=== PATIENT | male | born 1965 | race Caucasian/White ===

== ENCOUNTER 2025-01-29 11:39 | Emergency (ER) | payer MEDICAID, SELFPAY ==
[2025-01-29 11:42] VITALS: BMI 23.0
[2025-01-29 11:44] VITALS: BP 148/87; PULSE 70; RESP 17; TEMP 36.6; O2SAT 98
--- NOTE | 2025-01-29 11:58 | EKG_ITS ---
[facility] Test Date: 2025-01-29 Pat Name: MICAH GUEVARA Department: Room: - Gender: Male Environment Coordinator: : 1965 Requested By: Bret Castro Order Number: [id number] Reading MD: Bret Castro Measurements Intervals [place] Rate: 63 P: 61 AK: 166 QRS: 86 QRSD: 161 T: 61 QT: 458 QTc: 472 Interpretive Statements SINUS RHYTHM RIGHT BUNDLE BRANCH BLOCK [120+ ms QRS DURATION, UPRIGHT V1, 40+ ms S IN I/aVL/V4/V5/V6] No previous ECG available for comparison /store/S0/[id number]
--- NOTE | 2025-01-29 11:58 | PD.EDMEDCL ---
ED Medical Clearance RME/HPI General Chief complaint: Medical Clearance Stated complaint: MEDICAL CLEARANCE Time Seen by Provider: 01/29/25 11:51 Arrival date/time: 01/29/25 11:39 59-year-old male patient with no past medical history, came in for evaluation regarding medical clearance. Patient apparently was incarcerated today while in the senior living been complaining of shoulder pain radiating to the chest. According to him he has been having the pain for several months now. Comes and goes. Currently pain is described as dull ache severity mild. Patient have obvious lipoma to the left shoulder. Patient denies any cough no shortness of breath no diaphoresis. Denies any trauma denies any other complaints. Related Information Previous Rx's ?Medication ?Instructions ?Recorded Acetaminophen With Codeine 2 tab PO QIDPRN ##18 09/17/12 (Tylenol W-Codeine #3 Tablet) Allergies Allergy/AdvReac Type Severity Reaction Status Date / Time NKA* Allergy Uncoded 05/05/11 10:27 Review of Systems Review of Systems Narrative Review of Systems: Review of system reviewed and within normal limits except mentioned in HPI ED Exam Narrative Physical exam: VITAL SIGNS: Reviewed. GENERAL APPEARANCE: Alert and interactive, follows commands, no acute distress, HEAD AND FACE: Non-traumatic. ENT: PERRL, pink conjunctivitis, eyelid no trauma, Mucous membrane moist. NECK: Supple, nontender, no nuchal rigidity. CHEST: No tenderness, no crepitus, no paradoxical movement, no retractions. LUNGS: Clear, well ventilated, symmetric, no rales, no wheezing, no ronchi, no stridor, good breath sounds bilaterally. HEART: Regular rate, regular rhythm, no murmur, no gallops. ABDOMEN: Soft, positive bowel sounds, nondistended, no guarding, nontender, no rebound, no masses, RECTAL: Deferred. GENITAL: Deferred. NEUROLOGICAL: Gross motor function intact sensory function intact, Appropriate for age. MUSCULOSKELETAL: low back nontender, full range of motion. EXTREMITIES: Left shoulder tenderness, full range of motion. Lipoma noted on the left deltoid area, nontender no redness with soft to touch, distal neurovascular status intact SKIN: Color pink, dry, no rash, no lacerations, no abrasions, no contusions. LYMPHATICS: Deferred. Course Quality Measures none Orders Category Date Time Status EKG (ED ONLY) *Do not use* NOW Care 01/29/25 11:58 Active EKG (ED Only) Stat Exams 01/29/25 11:58 Draft Acetaminophen Tab [Tylenol ES Tab] Med 01/29/25 11:58 Discontinued 1,000 mg PO X1 ONE Vital Signs Vital signs: Vital Signs Temperature 98 F 01/29/25 11:44 Pulse Rate 70 01/29/25 11:44 Respiratory Rate 17 01/29/25 11:44 Blood Pressure 148/87 H 01/29/25 11:44 Pulse Oximetry (%) 98 01/29/25 11:44 Oxygen Delivery Method Room Air 01/29/25 11:44 Medical Clearance MDM Narrative MDM Narrative:: 59-year-old male patient with no past medical history, came in for evaluation regarding medical clearance. Patient apparently was incarcerated today while in the senior living been complaining of shoulder pain radiating to the chest. According to him he has been having the pain for several months now. Comes and goes. Currently pain is described as dull ache severity mild. Patient have obvious lipoma to the left shoulder. Patient denies any cough no shortness of breath no diaphoresis. Denies any trauma denies any other complaints. EKG showed normal sinus rhythm, ventricular rate of 63 bpm, no ST segment elevation depression noted. No-STEMI. Patient is medically cleared for incarceration. Patient was advised to follow-up with a surgeon regarding lipoma to left shoulder. Patient data External records reviewed:: None Clinical information provided by:: patient Social determinants that could affect healthcare access:: none Patient has the following chronic illnesses:: None How is presenting disease/condition affected by chronic disease/condition?: uneffected by Evaluation data The following diagnostics were reviewed and interpreted by me:: EKG tracing(s) Lab and/or radiology exams considered but not ordered:: None Interpretation Summary: See above Medications / Prescriptions Medications or Prescriptions considered but not ordered:: None Medication administrations:: Medication Administration History Discontinued Medications Acetaminophen (Acetaminophen 500 Mg Tablet) 1,000 mg PO X1 ONE Stop: 01/29/25 11:59 Last Admin: 01/29/25 12:09 Dose: 1,000 mg Documented By: EF Tylenol Consultations Consultation(s) initiated? (list below): No Diagnosis Medical Clearance Differential Diagnosis: other (Lipoma left chest, lipoma left shoulder, noncardiac chest pain) Most likely diagnosis given after review of the tests above:: Lipoma left shoulder, non cardiac chest pain Admission Indicated Admission indicated?: not indicated Admission Request Was there a request for admission?: No Disposition Plan Disposition Plan: Discharge Discharge Attestation Discharge Attestation: Patient condition: Stable Discharge Plan Plan Patient Disposition: Senior Living/Court/Law Discharge Disposition comment: Stable Prescriptions/Referrals Prescriptions/Med Rec: No Action Acetaminophen With Codeine (Tylenol W-Codeine #3 Tablet) 1 TAB tablet 2 tab PO QIDPRN Qty: 18 0RF Referrals: Yovany Fischer MD [Primary Care Provider, Family Practice] - In 1 week Problem List Clinical Impression: Lipoma of left shoulder, Non-cardiac chest pain, Medical clearance for incarceration Patient/Caregiver Discharge Instructions Discharge Activity: activity as tolerated Education Materials: ED Lipoma Additional Instructions: Thank you for the opportunity for serving you today. You are stable for discharged . You are advised to: Follow-up with your PCP in 1 to 2 days and ask for referral to general surgery regarding your lipoma once you get out of senior living Return to ED for worsening of symptoms Print Language: Russian ROGELIO/CLIENT EXECUTIVE Supervising Physician PA/CLIENT EXECUTIVE Supervising Physician: MD William
[2025-01-29] MEDS: ACETAMINOPHEN 500 MG TABLET 1000 MG PO (12:09)
== END 2025-01-29 12:43 ==
PROVIDERS: Emergency Provider Family Medicine; PCP Family Medicine
DX: Z02.89 Encounter for other administrative examinations (principal); D17.22 Benign lipomatous neoplasm of skin and subcutaneous tissue of left arm; R07.89 Other chest pain; I45.10 Unspecified right bundle-branch block
CPT/HCPCS: 99282; A9270